=== PATIENT | female | born 1990 | race Caucasian/White ===

== ENCOUNTER 2020-08-25 08:41 | Inpatient (IN) | payer OTHER ==
[2020-08-25] MEDS ORDERED: CITRIC ACID/SODIUM CITRATE 30 ML UNIT-DOSE CUP PO ONE (08:45)
[2020-08-25] MEDS ORDERED: ELECTROLYTE-148 SOLN 1,000 ML IV SCH (08:45)
[2020-08-25 10:17] VITALS: BMI 44.0
[2020-08-25] MEDS ORDERED: OXYTOCIN 10 UNITS/ML VIAL ONE (11:11)
[2020-08-25] MEDS ORDERED: OXYTOCIN 20 UNITS in 0.9% NS 20 UNIT/1,000 ML INFUS.BAG IV ONE (11:11)
[2020-08-25] MEDS ORDERED: morphine SULFATE/PF 0.5 MG/ML (2cc Syringe - QUVA) ONE (11:13)
[2020-08-25] MEDS: ELECTROLYTE-148 SOLN 1,000 ML IV SCH (11:15)
[2020-08-25] MEDS ORDERED: LIDOCAINE HCL 1% PRESERVATIVE FREE - 30ML VIAL ONE (12:08)
[2020-08-25] MEDS ORDERED: KETAMINE HCL 500 MG/10 ML VIAL ONE (12:11)
[2020-08-25] MEDS ORDERED: MIDAZOLAM HCL 2 MG/2 ML SINGLE DOSE VIAL ONE (12:17)
[2020-08-25] MEDS ORDERED: ONDANSETRON 4 MG/2 ML VIAL IVPUSH PRN (13:14)
[2020-08-25] MEDS ORDERED: SENNOSIDES/DOCUSATE COMBO (SENNA PLUS) TABLET (UD) PO PRN (13:14)
[2020-08-25] MEDS: OXYTOCIN 20 UNITS in 0.9% NS 20 UNIT/1,000 ML INFUS.BAG IV SCH (13:40)
[2020-08-25] MEDS ORDERED: morphine SULFATE/PF 0.5 MG/ML (2cc Syringe - QUVA) EP ONE (13:41)
[2020-08-25] MEDS ORDERED: ACETAMINOPHEN 1000 MG/100 ML VIAL (NON FORMULARY) IVPB ONE (13:43)
[2020-08-25] MEDS ORDERED: ACETAMINOPHEN INJECTION 100 ML IVPB ONE (13:58)
[2020-08-25] MEDS ORDERED: HYDROmorphone HCl 2 MG/ML VIAL ONE (15:14)
[2020-08-25] MEDS: HYDROmorphone HCl 2 MG/ML VIAL IVPUSH PRN ×2 (15:20→23:20)
[2020-08-25] MEDS ORDERED: HYDROmorphone HCl 2 MG/ML VIAL IVPB ONE (17:45)
[2020-08-25] MEDS: ACETAMINOPHEN 1000 MG/100 ML VIAL (NON FORMULARY) IVPB SCH (20:32)
[2020-08-25] MEDS: CEFAZOLIN 1 GM/D5W 1 GM/50 ML BAG IVPB SCH (21:47)
[2020-08-25] MEDS: BRIMONIDINE TARTRATE 0.2% OPHTHALMIC 5 ML BOTTLE OU SCH (21:47)
[2020-08-25] MEDS ORDERED: QUEtiapine FUMARATE 50 MG TABLET PO SCH (22:00)
[2020-08-26] MEDS: CEFAZOLIN 1 GM/D5W 1 GM/50 ML BAG IVPB SCH (02:38)
[2020-08-26] MEDS: ACETAMINOPHEN 1000 MG/100 ML VIAL (NON FORMULARY) IVPB SCH ×2 (03:59→08:17)
[2020-08-26 08:53] LABS: BASO % 0.4 % (0-2.0); EOS % 0.3 % (0-4.5); HEMATOCRIT 28.3 % (32.4-45.2); HEMOGLOBIN 9.6 GM/dL (10.7-15.3); LYMPH % 17.8 % (8-40); MCH 30.5 pg (25.7-33.7); MCHC 33.9 g/dl (32.0-36.0); MEAN CELL VOLUME 89.9 fl (80-96); MEAN PLT VOLUME 8.4 fl (7.5-11.1); MONO % 7.2 % (3.8-10.2); NEUT % 74.3 % (42.8-82.8); PLATELET COUNT 254 K/MM3 (134-434); RBC 3.14 M/mm3 (3.60-5.2); RDW 13.5 % (11.6-15.6); WHITE BLOOD COUNT 14.5 K/mm3 (4.0-10.0)
[2020-08-26] MEDS ORDERED: PRENATAL VITAMINS W/ FOLIC ACID TABLET (FP) PO SCH (10:00)
[2020-08-26] MEDS: FERROUS SO4 325 MG TABLET (FP) PO SCH (10:10)
[2020-08-26] MEDS: BRIMONIDINE TARTRATE 0.2% OPHTHALMIC 5 ML BOTTLE OU SCH ×2 (10:10→21:37)
[2020-08-26] MEDS: SIMETHICONE 80 MG TAB.CHEW (FP) PO PRN ×2 (12:13→19:53)
[2020-08-26] MEDS: oxyCODONE HCL 5 MG TABLET PO PRN ×2 (12:13→19:51)
[2020-08-26] MEDS ORDERED: BISACODYL 10 MG SUPP.RECT RC PRN (13:15)
[2020-08-26] MEDS: ACETAMINOPHEN 325 MG TABLET (FP) PO PRN ×2 (15:48→19:50)
[2020-08-26] MEDS: OXYTOCIN 20 UNITS in 0.9% NS 20 UNIT/1,000 ML INFUS.BAG IV SCH (20:55)
[2020-08-26] MEDS: ELECTROLYTE-148 SOLN 1,000 ML IV SCH (20:55)
[2020-08-26] MEDS: QUEtiapine FUMARATE 100 MG TABLET (FP) PO SCH (21:37)
[2020-08-27] MEDS: SIMETHICONE 80 MG TAB.CHEW (FP) PO PRN (04:35)
[2020-08-27] MEDS: ACETAMINOPHEN 325 MG TABLET (FP) PO PRN ×3 (04:35→21:24)
[2020-08-27] MEDS: oxyCODONE HCL 5 MG TABLET PO PRN ×3 (04:36→18:06)
[2020-08-27] MEDS: BRIMONIDINE TARTRATE 0.2% OPHTHALMIC 5 ML BOTTLE OU SCH ×2 (10:00→21:25)
[2020-08-27] MEDS: FERROUS SO4 325 MG TABLET (FP) PO SCH (10:30)
[2020-08-27 10:53] LABS: BASO % 0.4 % (0-2.0); EOS % 0.4 % (0-4.5); HEMATOCRIT 28.5 % (32.4-45.2); HEMOGLOBIN 9.4 GM/dL (10.7-15.3); MCHC 32.9 g/dl (32.0-36.0); MEAN CELL VOLUME 91.1 fl (80-96); MEAN PLT VOLUME 9.3 fl (7.5-11.1); MONO % 6.8 % (3.8-10.2); NEUT % 76.4 % (42.8-82.8); PLATELET COUNT 273 K/MM3 (134-434); RBC 3.13 M/mm3 (3.60-5.2); WHITE BLOOD COUNT 15.2 K/mm3 (4.0-10.0)
[2020-08-27 11:12] LABS: BLOOD UREA NITROGEN 7.2 mg/dL (7-18); CALCIUM 8.7 mg/dL (8.5-10.1)
[2020-08-27 11:16] LABS: CREATININE 0.5 mg/dL (0.55-1.3)
[2020-08-27 11:48] LABS: MAGNESIUM 1.9 mg/dL (1.8-2.4)
[2020-08-27 11:50] LABS: PHOSPHOROUS 3.8 mg/dL (2.5-4.9)
[2020-08-27] MEDS: ACETAMINOPHEN/CAFFEINE/BUTALBITAL 1 TAB PO PRN (14:32)
[2020-08-27 15:40] LABS: EPI CELLS 11 /uL (0-25.1); HYALINE CASTS 2 /uL (0-3.1); URINE APPEARANCE CLEAR; URINE BACTERIA 33 /uL (0-1359); URINE BILIRUBIN NEGATIVE (NEGATIVE); URINE COLOR YELLOW; URINE GLUCOSE (UA) NEGATIVE (NEGATIVE); URINE KETONE NEGATIVE (NEGATIVE); URINE LEUK ESTERASE NEGATIVE (NEGATIVE); URINE NITRITE NEGATIVE (NEGATIVE); URINE PROTEIN NEGATIVE (NEGATIVE); URINE RBC 70 /uL (0-23.9); URINE WBC 3 /uL (0-25.8)
[2020-08-27] MEDS: QUEtiapine FUMARATE 100 MG TABLET (FP) PO SCH (21:24)
[2020-08-28] MEDS: oxyCODONE HCL 5 MG TABLET PO PRN ×2 (02:04→13:29)
[2020-08-28] MEDS: ACETAMINOPHEN 325 MG TABLET (FP) PO PRN ×2 (06:04→13:28)
[2020-08-28] MEDS: ACETAMINOPHEN/CAFFEINE/BUTALBITAL 1 TAB PO PRN (09:51)
[2020-08-28] MEDS: BRIMONIDINE TARTRATE 0.2% OPHTHALMIC 5 ML BOTTLE OU SCH (09:52)
[2020-08-28] MEDS: FERROUS SO4 325 MG TABLET (FP) PO SCH (09:53)
[2020-08-28 12:18] VITALS: BP 122/74; PULSE 76; TEMP 98.9
[2020-08-28] MEDS: SIMETHICONE 80 MG TAB.CHEW (FP) PO PRN (13:28)
== END 2020-08-28 13:55 | disposition home or self-care (01) | DRG 540 ==
LOC: JLDR 08:41 → J3W 15:31
PROVIDERS: ADMIT Specialist; ATTEND Specialist
PROC: 10D00Z1 Extraction of Products of Conception, Low, Open Approach (ICD-10-PCS; principal; 2020-08-25)
DX: O60.14X0 Preterm labor third trimester with preterm delivery third trimester, not applicable or unspecified (principal); O46.8X3 Other antepartum hemorrhage, third trimester; O69.89X0 Labor and delivery complicated by other cord complications, not applicable or unspecified; R51.9 Headache, unspecified; Z86.59 Personal history of other mental and behavioral disorders; Z87.59 Personal history of other complications of pregnancy, childbirth and the puerperium; Z3A.36 36 weeks gestation of pregnancy; Z37.0 Single live birth
CPT/HCPCS: 36415; 59025; 80048; 81003; 83735; 84100; 85025; 85610; 85730; 86780; 86850; 86900; 86901; 87086; 87389; 88307-TC; C9803; J0131; U0003; U0005

== ENCOUNTER 2021-01-20 09:07 | Observation (INO) | payer OTHER ==
[2021-01-20] MEDS ORDERED: ACETAMINOPHEN 1000 MG/100 ML VIAL IVPB ONE (09:26)
[2021-01-20 09:47] LABS: HCG,QUALITATIVE URINE Negative
[2021-01-20] MEDS ORDERED: ACETAMINOPHEN INJECTION 100 ML IVPB ONE (09:52)
[2021-01-20 10:05] LABS: EPITHELIAL CELLS FEW /hpf
[2021-01-20 10:16] LABS: ACTIVATED PTT 27.8 SECONDS (25.2-36.5)
[2021-01-20 10:17] LABS: ALBUMIN 3.4 g/dl (3.4-5.0); ANION GAP 11 MMOL/L (8-16); BASO % 2.4 % (0-2.0); BILIRUBIN,TOTAL 0.3 mg/dl (0.2-1); CALCIUM 8.6 mg/dl (8.5-10); CHLORIDE 105 mmol/L (98-107); CO2 23 mmol/L (21-32); CREATININE 0.8 mg/dl (0.55-1.3); EOS % 1.4 % (0-4.5); GLUCOSE,RANDOM 90 mg/dl (74-106); HEMATOCRIT 36.6 % (32.4-45.2); HEMOGLOBIN 11.9 GM/dl (10.7-15.3); LYMPH % 20.5 % (8-40); MCH 27.8 pg (25.7-33.7); MCHC 32.6 g/dl (32.0-36.0); MEAN CELL VOLUME 85.1 fl (80-96); MEAN PLT VOLUME 9.4 fl (7.5-11.1); MONO % 4.8 % (3.8-10.2); NEUT % 70.9 % (42.8-82.8); PLATELET COUNT 309 10^3/uL (134-434); RDW 14.4 % (11.6-15.6); SGOT/AST 19 U/L (15-37); SGPT/ALT 25 U/L (13-61); SODIUM 139 mmol/L (136-145); TOT PROT 6.7 g/dl (6.4-8.2); WHITE BLOOD COUNT 11.4 K/mm3 (4.0-10.8)
[2021-01-20 10:18] LABS: ALK PHOS 80 U/L (45-117)
[2021-01-20 10:21] LABS: INR 0.97 (0.82-1.09); PROTHROMBIN TIME (PATIENT) 10.8 SEC (10.2-13.0)
[2021-01-20] MEDS ORDERED: SODIUM CHLORIDE 1,000 ML IV STA (12:01)
[2021-01-20] MEDS ORDERED: morphine CARPU-JECT 4 MG/1 ML DISP.SYRIN IVPUSH ONE ×2 (12:01→17:40)
[2021-01-20] MEDS ORDERED: morphine SULFATE 4 MG/ML VIAL ONE ×2 (12:16→18:01)
[2021-01-20] MEDS ORDERED: MEDROXYPROGESTERONE ACETATE NR SCH (15:15)
[2021-01-20] MEDS ORDERED: ENOXAPARIN NA (PORCINE) 100 MG/1 ML DISP.SYRIN SQ ONE (18:01)
[2021-01-20] MEDS: ENOXAPARIN NA (PORCINE) 100 MG/1 ML DISP.SYRIN SQ SCH (18:14)
[2021-01-20 18:46] VITALS: BMI 42.7
[2021-01-20] MEDS: ACETAMINOPHEN 325 MG TABLET (FP) PO PRN (20:29)
[2021-01-20] MEDS: BRIMONIDINE TARTRATE 0.2% OPHTHALMIC 5 ML BOTTLE OU SCH (21:58)
[2021-01-20] MEDS ORDERED: QUEtiapine FUMARATE 200 MG TABLET PO SCH (22:00)
[2021-01-21] MEDS: ACETAMINOPHEN 325 MG TABLET (FP) PO PRN (05:31)
[2021-01-21] MEDS: ENOXAPARIN NA (PORCINE) 100 MG/1 ML DISP.SYRIN SQ SCH (05:32)
[2021-01-21 08:02] LABS: BASO % 3.6 % (0-2.0); EOS % 1.6 % (0-4.5); HEMATOCRIT 37.3 % (32.4-45.2); HEMOGLOBIN 11.9 GM/dl (10.7-15.3); MCH 28.1 pg (25.7-33.7); MEAN CELL VOLUME 87.9 fl (80-96); MEAN PLT VOLUME 9.1 fl (7.5-11.1); MONO % 5.8 % (3.8-10.2); PLATELET COUNT 295 10^3/uL (134-434); RBC 4.24 M/mm3 (3.60-5.2); RDW 14.2 % (11.6-15.6); WHITE BLOOD COUNT 10.3 K/mm3 (4.0-10.8)
[2021-01-21 08:10] LABS: ALBUMIN 3.1 g/dl (3.4-5.0); BILIRUBIN,TOTAL 0.1 mg/dl (0.2-1); CALCIUM 8.6 mg/dl (8.5-10); CREATININE 0.8 mg/dl (0.55-1.3); TOT PROT 6.3 g/dl (6.4-8.2)
[2021-01-21 09:46] VITALS: BP 120/69; PULSE 94; TEMP 98.7
[2021-01-21] MEDS ORDERED: MAGNESIUM OXIDE 400 MG TABLET (FP) PO SCH (10:00)
[2021-01-21] MEDS ORDERED: ETHINYL ESTRADIOL PO SCH (10:00)
[2021-01-21] MEDS ORDERED: LEVONORGESTREL PO SCH (10:00)
[2021-01-21] MEDS ORDERED: [UNRECOGNIZED DRUG - OTHER] PO SCH (10:00)
[2021-01-21] MEDS: BRIMONIDINE TARTRATE 0.2% OPHTHALMIC 5 ML BOTTLE OU SCH (10:16)
== END 2021-01-21 13:44 | disposition home or self-care (01) ==
LOC: FER 09:07 → FM/S 14:51 → INTOOBSV 18:07 → UNDOADMOB 18:07
PROVIDERS: ADMIT Internal Medicine; ATTEND Nurse Practitioner Acute Care
PROC: 3E033NZ Introduction of Analgesics, Hypnotics, Sedatives into Peripheral Vein, Percutaneous Approach (ICD-10-PCS; principal; 2021-01-20)
PROC: 3E023GC Introduction of Other Therapeutic Substance into Muscle, Percutaneous Approach (ICD-10-PCS; 2021-01-20)
PROC: 3E0337Z Introduction of Electrolytic and Water Balance Substance into Peripheral Vein, Percutaneous Approach (ICD-10-PCS; 2021-01-20)
DX: R07.9 Chest pain, unspecified (principal); N93.8 Other specified abnormal uterine and vaginal bleeding; F31.9 Bipolar disorder, unspecified; H40.9 Unspecified glaucoma; Z98.84 Bariatric surgery status; Z98.49 Cataract extraction status, unspecified eye; Z87.891 Personal history of nicotine dependence; R00.2 Palpitations; Z88.8 Allergy status to other drugs, medicaments and biological substances; Z88.2 Allergy status to sulfonamides
CPT/HCPCS: 36415; 71046-TC-FY; 71275-TC; 80053; 81003; 81015; 82550; 83735; 84484; 84703; 85025; 85379; 85610; 85730; 87086; 93005; 93970-TC; 96361; 96372; 96374; 96375; 96376; 99285-25; C9803; G0378; J0131; Q9967; U0003; U0005

== ENCOUNTER 2022-06-21 05:58 | Emergency (ER) | payer OTHER ==
[2022-06-21 06:10] VITALS: BMI 40.2
[2022-06-21] MEDS ORDERED: SODIUM CHLORIDE 1,000 ML IV STA (06:16)
[2022-06-21] MEDS ORDERED: ONDANSETRON 4 MG/2 ML VIAL IVPUSH ONE (06:18)
[2022-06-21] MEDS ORDERED: ONDANSETRON 4 MG/2 ML VIAL ONE (06:18)
[2022-06-21] MEDS ORDERED: ACETAMINOPHEN 1000 MG/100 ML BAG IVPB ONE (06:35)
[2022-06-21] MEDS ORDERED: ACETAMINOPHEN INJECTION 100 ML IVPB ONE (06:36)
[2022-06-21 07:27] LABS: CALCIUM 9.1 mg/dL (8.5-10.1)
[2022-06-21 07:28] LABS: HEMATOCRIT 38.5 % (32.4-45.2); HEMOGLOBIN 12.8 GM/dL (10.7-15.3); MCH 28.2 pg (25.7-33.7); MCHC 33.2 g/dl (32.0-36.0); MEAN CELL VOLUME 84.7 fl (80-96); MEAN PLT VOLUME 8.4 fl (7.5-11.1); PLATELET COUNT 304 10^3/uL (134-434); RBC 4.55 M/mm3 (3.60-5.2); RDW 14.8 % (11.6-15.6); WHITE BLOOD COUNT 18.4 K/mm3 (4.0-10.0)
[2022-06-21 07:28] LABS: ALBUMIN 3.9 g/dl (3.4-5.0); BLOOD UREA NITROGEN 15.7 mg/dL (7-18)
[2022-06-21 07:31] LABS: CREATININE 0.8 mg/dL (0.55-1.3)
[2022-06-21 07:33] LABS: BILIRUBIN,TOTAL 0.5 mg/dL (0.2-1); TOT PROT 7.4 g/dl (6.4-8.2)
[2022-06-21] MEDS ORDERED: morphine CARPU-JECT 2 MG/1 ML DISP.SYRIN IVPUSH ONE (07:38)
[2022-06-21] MEDS ORDERED: FAMOTIDINE 20 MG/50 ML IVPB 20 MG/50 ML MG IVPB ONE ×2 (07:38→07:59)
[2022-06-21] MEDS ORDERED: morphine SULFATE 4 MG/ML VIAL ONE (07:58)
[2022-06-21 08:16] LABS: EPI CELLS >36 /uL (0-25.1); HYALINE CASTS 4 /uL (0-3.1); PH,URINE 5.5 (5.0-8.0); URINE APPEARANCE TURBID; URINE BACTERIA 334 /uL (0-1359); URINE BILIRUBIN NEGATIVE (NEGATIVE); URINE COLOR YELLOW; URINE GLUCOSE (UA) NEGATIVE (NEGATIVE); URINE KETONE TRACE (NEGATIVE); URINE LEUK ESTERASE NEGATIVE (NEGATIVE); URINE NITRITE NEGATIVE (NEGATIVE); URINE PROTEIN 1+ (NEGATIVE); URINE RBC 38 /uL (0-23.9); URINE UROBILINOGEN 0.2 mg/dL (0.2-1.0); URINE WBC 25 /uL (0-25.8)
[2022-06-21 09:19] VITALS: BP 121/80; PULSE 106; RESP 18; TEMP 98.2
== END 2022-06-21 09:39 | disposition home or self-care (01) ==
LOC: FER 05:58
PROC: 3E033GC Introduction of Other Therapeutic Substance into Peripheral Vein, Percutaneous Approach (ICD-10-PCS; principal; 2022-06-21)
PROC: 3E033GC Introduction of Other Therapeutic Substance into Peripheral Vein, Percutaneous Approach (ICD-10-PCS; 2022-06-21)
PROC: 3E033GC Introduction of Other Therapeutic Substance into Peripheral Vein, Percutaneous Approach (ICD-10-PCS; 2022-06-21)
PROC: 3E033GC Introduction of Other Therapeutic Substance into Peripheral Vein, Percutaneous Approach (ICD-10-PCS; 2022-06-21)
PROC: 3E0337Z Introduction of Electrolytic and Water Balance Substance into Peripheral Vein, Percutaneous Approach (ICD-10-PCS; 2022-06-21)
DX: R10.31 Right lower quadrant pain (principal); K80.20 Calculus of gallbladder without cholecystitis without obstruction; D72.829 Elevated white blood cell count, unspecified; R11.2 Nausea with vomiting, unspecified; R68.83 Chills (without fever)
CPT/HCPCS: 36415; 74177-TC; 76705-TC; 80053; 81003; 81025; 85025; 87086; 99285-25; Q9967